=== PATIENT | female | born 1950 | race Caucasian/White ===

== ENCOUNTER 2025-02-09 07:21 | Day surgery (SDC) | payer MEDICARE, BC, SELFPAY ==
[2025-02-09] VITALS (16 sets, daily range): BP systolic 87–146; BP diastolic 40–91; PULSE 53–73; RESP 14–16; TEMP 36.1–36.5; O2SAT 92–100; BMI 31.2
[2025-02-09] MEDS: LACTATED RINGERS 1000 ML 1,000 ML 100 ML IV ×2 (07:30→10:43)
[2025-02-09] MEDS: CELECOXIB 200 MG CAPSULE PO (07:40)
[2025-02-09] MEDS: ACETAMINOPHEN 500 MG TABLET 1000 MG PO (07:40)
[2025-02-09] MEDS: OXYCODONE (CR) 10 MG TAB.ER.12H PO (07:40)
[2025-02-09] MEDS: SODIUM CHLORIDE 0.9 % (FLUSH) 10 ML SYRINGE IVF (08:03)
[2025-02-09] MEDS: MIDAZOLAM HCL 1 MG/ML inj IVP (09:10)
[2025-02-09] MEDS: fentaNYL 100 MCG/2 ML inj IVP (09:10)
--- NOTE | 2025-02-09 09:17 | P.NB_ITS ---
Nerve Block Nerve Block Time Seen by Provider: 09:00 Date Seen: 02/09/25 Type of block requested by surgeon for post-operative analgesia: supraclavicular Side: right Time out performed: Yes Verification of patient name: Yes Verification of date of : Yes Site marking: site marked Name of person performing procedure: Yamini Duval Continuous monitoring Was continuous monitoring of O2 sat, B/P, arranging funeral director, recorded every 15 minutes?: Yes Procedure Checklist: sterile prep, needles and gloves Ultrasound guided. Images saved: Yes Medications given in 5ml increments after negative aspiration: Ropivicaine %: 0.5 mL: 15 Needle gauge: 20 Precedex (mcg): 25 Patient tolerated procedure well: Yes Block Charges Block Charge (with Pro Fee): Brachial Plexus Use of Ultrasound Machine for Block: Yes- US Guidance/pain block
--- NOTE | 2025-02-09 09:19 | SUR.PREOP ---
TIME?OUT:? PT/guevara morel RN/ madalyn jalloh CRNA/ madalyn rossi CRNA?VERIFICATION?OF?SURGICAL?SITE,?PROCEDURE,?AND?CONSENT OBTAINED?PRIOR?TO?INVASIVE?PROCEDURE.
[2025-02-09] MEDS: TRANEXAMIC ACID 100 MG/ML INJ 1000 MG IV (09:47)
[2025-02-09] MEDS: CEFAZOLIN 2 GM INJ IVP (09:47)
--- NOTE | 2025-02-09 11:14 | CRLHL7_ITS ---
For Patients: As a result of the Cures Act, medical imaging exams and procedure reports are released immediately into your electronic medical record. You may view this report before your referring provider. If you have questions, please contact your health care provider. Indication: RT POST OP TOTAL SHOULDER Technique: Two views right shoulder Findings/Impression: Hardware from a right shoulder replacement arthroplasty is in satisfactory position. Bone alignment is normal. No sign of acute fracture. Postop changes are within normal limits. Dictated by José Miguel Salas MD @ 02/10/2025 1:25:56 PM (Electronically Signed)
--- NOTE | 2025-02-09 11:16 | P.ORPRC_ITS ---
Procedure Note Date of procedure: 02/09/25 Procedure: PREOPERATIVE DIAGNOSIS: Right shoulder end-stage glenohumeral joint osteoarthritis POSTOPERATIVE DIAGNOSIS: Right shoulder end-stage glenohumeral joint osteoarthritis NAME OF OPERATION: Right upper extremity reverse shoulder arthroplasty, biceps tenodesis SURGEON: Alphonse Rnadolph MD PHOTOENGRAVING ETCHER: Justa Adams PA-C ANESTHESIA: General endotracheal ESTIMATED BLOOD LOSS: 100 mL COMPLICATIONS: None SPECIMENS: None DRAINS: None PREOPERATIVE ANTIBIOTICS: Ancef 1 grams IMPLANTS: 1. Tornier 25mm x 35 mm baseplate 2. 36mm standard glenosphere 3. 4B humeral stem 4. High eccentric +0 humeral tray 5. 36mm +6 polyethylene INDICATIONS: The patient is a 74-year-old with a longstanding history of severe, unrelenting right shoulder pain secondary to end-stage osteoarthritis . Despite appropriate nonoperative management, including activity modification, anti-inflammatories, glbj-trn-iocgsyt pain medication, physical therapy, and injections they continue to have pain and disability. Operative intervention was offered. The risks, benefits and expected outcomes were discussed in detail. These included but were not limited to: Infection, bleeding, injury to blood vessel or nerve, venous thromboembolism. All questions were answered to their satisfaction. Use of an golf player assistant was necessary throughout the case for patient positioning and safety, soft tissue retraction, and closure. PROCEDURE: General anesthesia was administered. The patient was placed in the lazy beach chair position on the operating room table. The right upper extremity was prepped and draped in the usual sterile fashion. A standard deltopectoral incision was made. Subcutaneous dissection was taken with electrocautery to the deltopectoral interval. The cephalic vein was mobilized, lateral branches were cauterized. The vein was taken medially with the pectoralis. We bluntly entered the deltopectoral interval. We freed up the deltoid. The upper 1/3 of the insertion of the pectoralis was divided with cautery. The static retractor was placed. The clavipectoral fascia and CA ligament were divided. The circumflex vessels were controlled with electrocautery. The biceps was dissected out of the bicipital groove, was tagged with a #2 FiberWire suture and divided proximally. Two fiberWire sutures were placed in the subscapularis. The subscap was subperiosteally elevated off of the lesser tuberosity. The humeral head was delivered into the wound. The intramedullary humeral cutting guide was placed. We made the cut at the anatomic neck, in 30? of retroversion. Humeral sounds were used to assess the diameter of the canal. The broach was placed and had good rotational stability. The calcar reamer was used and the protective base plate cover was placed. Attention was then turned to the glenoid. Hohmann retractors were placed posteriorly. The labrum and biceps stump were sharply debrided. The origin of the inferior glenohumeral ligaments were subperiosteally released off of the glenoid. The drill guide was placed. The guide pin was placed in 0? of cephalic tilt. The reamer was used to bleeding bone. The central drill was used x2. The tap was used. The standard base plate was placed. This had excellent purchase. Locking screws x 2 were placed. The glenosphere was placed, the set screw was tightened. Attention then returned to the humerus. We placed a high eccentric standard base plate and standard poly. We reduced the shoulder and took it through a range of motion. It was found to be stable with appropriate soft tissue tension. Trial humeral components were removed. The biceps was tenodesed in the bicipital groove with drill holes and our previously placed FiberWire suture. We placed #2 FiberWire sutures in the lesser tuberosity for subsequent subscap repair. We assembled the humeral component on the back table. We placed it in the center of our subscapularis repair sutures and tapped it down to our humeral cut. This had excellent purchase. The shoulder was reduced and again was found to be stable with appropriate soft tissue tension. We did a 3 min dilute Betadine solution soak. We irrigated the wound with 3 L of normal saline via pulse lavage. We repaired the subscapularis to the lesser tuberosity with our previously placed FiberWire sutures. The deltopectoral interval was loosely reapproximated with an 0 Vicryl in an interrupted [id number] fashion. Subcutaneous tissues were closed with the 2-0 Vicryl and a running 3-0 Monocryl suture. The skin was sealed with glue. A dry dressing and sling were applied. Sponge and needle counts were correct x2. The patient tolerated the procedure well, there were no apparent complications. They were awakened and extubated in the operating room, taken to the postanesthesia care unit in satisfactory condition. PLAN: The patient will be mobilized with physical therapy. The sling will be used for 6 weeks postoperatively. Active range of motion in forward flexion and abduction as tolerates. No external rotation greater than 0? for 6 weeks postoperatively. They will be discharged to home once medically appropriate.
--- NOTE | 2025-02-09 11:59 | P.ANES_ITS ---
Anesthesia Charges Start Date/Time Anesthesia Start Date: 02/09/25 Anesthesia Start Time: 09:20 Stop Date/Time Anesthesia Stop Date: 02/09/25 Anesthesia Stop Time: 11:59 Summary Extremes of Age - Over 70 or under 1: CIVIL DIVISION COMMANDER DEPUTY SHERIFF Coding CPT Codes CPT Codes: ANESTH SHOULDER REPLACEMENT - 80819 ([id number]) P3 - PATIENT W/SEVERE SYS DISEASE, QZ - CIVIL DIVISION COMMANDER DEPUTY SHERIFF SVC W/O DELI CUTTER SLICER BY Additional Codes: Summary - Extremes of Age - Over 70 or under 1: CIVIL DIVISION COMMANDER DEPUTY SHERIFF ([id number])
--- NOTE | 2025-02-09 11:59 | W.ANESCHARGE ---
Anesthesia Charges Start Date/Time Anesthesia Start Date: 02/09/25 Anesthesia Start Time: 09:20 Stop Date/Time Anesthesia Stop Date: 02/09/25 Anesthesia Stop Time: 11:59 Summary Extremes of Age - Over 70 or under 1: DOUGH BRAKER Coding CPT Codes CPT Codes: ANESTH SHOULDER REPLACEMENT - 10669 ([id number]) P3 - PATIENT W/SEVERE SYS DISEASE, QZ - DOUGH BRAKER SVC W/O HEALTH OCCUPATIONS INSTRUCTOR BY Additional Codes: Summary - Extremes of Age - Over 70 or under 1: DOUGH BRAKER ([id number])
== END 2025-02-09 14:23 | disposition home or self-care (01) ==
LOC: OR 07:23
PROVIDERS: PCP Internal Medicine; Visit Provider Orthopaedic Surgery
PROC: 0RRJ0JZ Replacement of Right Shoulder Joint with Synthetic Substitute, Open Approach (ICD-10-PCS; CPT 23472; principal; 2025-02-09 09:15)
DX: M19.011 Primary osteoarthritis, right shoulder (principal); G89.18 Other acute postprocedural pain; I12.9 Hypertensive chronic kidney disease with stage 1 through stage 4 chronic kidney disease, or unspecified chronic kidney disease; N18.1 Chronic kidney disease, stage 1; M06.9 Rheumatoid arthritis, unspecified
CPT/HCPCS: 23472; 23430; 01638; 64415; 73030; 76942; 97165; 97535; 99100; A9270; C1713; C1776; J0690; J1100; J2250; J2371; J2405; J2704; J2710; J2795; J3010; J7120